=== PATIENT | female | born 1975 | race Caucasian/White ===

== ENCOUNTER 2021-08-25 10:10 | Emergency (ER) | payer MEDICAID ==
[~2021-08-25] VITALS: Ht 165.1 cm; Wt 59.0 kg
[2021-08-25 10:10] VITALS: BP_SYST 161
[~2021-08-25 10:10] MED LIST: CLAR250T3 PO; ENAL10TA19 PO
[2021-08-25] MEDS ORDERED: NACL 0.9% 1,000 ML IV ONE (10:45)
[2021-08-25] MEDS ORDERED: ONDANSETRON HCL 4 MG/2 ML VIAL IVP ONE (10:45)
[2021-08-25 11:23] LABS: HEMATOCRIT 41.2 % (36-48); MEAN CORPUSCULAR HEMOGLOBIN 31 pg (27-31); MEAN CORPUSCULAR HGB CONC 34 % (32-36); MEAN CORPUSCULAR VOLUME 90 fL (79.0-98.0); PLATELET COUNT (AUTO) 182 K/uL (130-430); RED BLOOD CELL COUNT(AUTO) 4.56 MIL/uL (4.2-6.2); RED CELL DISTRIBUTION WIDTH 13.2 % (9.0-15.0)
[2021-08-25 12:38] LABS: ATYPICAL LYMPHOCYTES % 3 % (0-0); BASOPHILS % (MANUAL) 0 % (0-2); EOSINOPHILS % (MANUAL) 0 % (0-7); LYMPHOCYTES % (MANUAL) 32 % (20-46); MONOCYTES % (MANUAL) 4 % (0-11)
[2021-08-25 13:11] LABS: CALCIUM 8.9 mg/dL (8.4-11.0); CREATININE 0.86 mg/dL (0.55-1.30)
[2021-08-25 13:17] LABS: ALBUMIN 4.4 g/dL (3.4-4.8); TOTAL BILIRUBIN 0.3 mg/dL (0.0-1.0)
[2021-08-25 13:28] LABS: POTASSIUM 3.5 mmol/L (3.5-5.1)
[2021-08-25] MEDS ORDERED: LOM2.5 PO (13:31)
[2021-08-25] MEDS ORDERED: ONDA-8 TL (13:31)
[2021-08-25 13:45] VITALS: BP_SYST 161
== END 2021-08-25 13:45 | disposition home or self-care (01) ==
LOC: SED 10:10
DX: K52.9 Noninfective gastroenteritis and colitis, unspecified (principal); Z79.899 Other long term (current) drug therapy
CPT/HCPCS: 36415; 74176; 76376; 80053; 83690; 85007; 85027; 96361; 96374; 99284; J2405; J7030

== ENCOUNTER 2022-02-02 16:39 | Emergency (ER) | payer BC, MEDICAID ==
[~2022-02-02] VITALS: Ht 165.1 cm; Wt 59.0 kg
[~2022-02-02 16:39] MED LIST changes: +LOM2.5 PO; +ONDA-8 TL
[2022-02-02 16:56] VITALS: BP_SYST 144
--- NOTE | 2022-02-02 17:10 | NUR ---
Pt brought by self, A&Ox4, pt presents to ER with lower abd pain ,burning with urination, pt afebrile, skin pink and warm, cap refill <3, VSS.
--- NOTE | 2022-02-02 17:15 | NUR ---
Dr Fernández evaluating patient in the triage room
[2022-02-02 17:31] LABS: BILIRUBIN,URINE NEGATIVE (NEGATIVE); BLOOD, URINE 1+ (NEGATIVE); CLARITY/URINE CLEAR (CLEAR); COLOR,URINE YELLOW (YELLOW); GLUCOSE,URINE NEGATIVE (NEGATIVE); KETONES,URINE NEGATIVE (NEGATIVE); LEUKOCYTE ESTERASE ,URINE NEGATIVE (NEGATIVE); NITRITE, URINE NEGATIVE (NEGATIVE); PH,URINE 7.5 (5.0-8.0); PROTEIN URINE NEGATIVE (NEGATIVE); UROBILINOGEN,URINE 0.2 (0.2-1.0)
[2022-02-02 17:47] LABS: BACTERIA,URINE FEW /HPF (None Seen); MUCUS,URINE None Seen /LPF (None Seen); RBC,URINE 0-3 /HPF (0-3); WBC,URINE NONE SEEN /HPF (0-3)
[2022-02-02 17:53] LABS: BASOPHILS % (AUTO) 0.4 % (0.0-2.0); EOSINOPHILS # (AUTO) 0.1 K/uL (0.0-0.4); HEMATOCRIT 40.3 % (36-48); HEMOGLOBIN 13.3 g/dL (12.0-16.0); LYMPHOCYTES # (AUTO) 1.6 K/uL (1.0-5.5); MEAN CORPUSCULAR HEMOGLOBIN 30 pg (27-31); MEAN CORPUSCULAR HGB CONC 33 % (32-36); MEAN CORPUSCULAR VOLUME 91 fL (79.0-98.0); MONOCYTES # (AUTO) 0.4 K/uL (0.0-1.0); MONOCYTES % (AUTO) 6.6 % (1.7-9.3); NEUTROPHILS # (AUTO) 4.5 K/uL (1.8-7.7); PLATELET COUNT (AUTO) 190 K/uL (130-430); RED BLOOD CELL COUNT(AUTO) 4.42 MIL/uL (4.2-6.2); RED CELL DISTRIBUTION WIDTH 13.6 % (9.0-15.0); WHITE BLOOD COUNT (AUTO) 6.7 K/uL (4.8-10.8)
[2022-02-02 17:55] LABS: ANION GAP 7 (5-15); CALCIUM 8.5 mg/dL (8.4-11.0); CHLORIDE 104 mmol/L (98-107); CREATININE 0.75 mg/dL (0.55-1.30); GLUCOSE 79 mg/dL (70-99); POTASSIUM 3.5 mmol/L (3.5-5.1); SODIUM SERUM 138 mmol/L (136-145); UREA NITROGEN, BLOOD 13 mg/dL (8-21)
--- NOTE | 2022-02-02 17:58 | NUR ---
Patient to ER bed 04 to gown for evaluation. Side rails up.
--- NOTE | 2022-02-02 18:00 | NUR ---
Pt has cc of lower abdominal pain and burning with urination for the past 24 hours. Pt currently sitting on gurney and is calm and cooperative. AxO x4, gcs 15. resp e/u, s1s2 normal. Will continue to monitor.
[2022-02-02 18:01] LABS: ALANINE AMINOTRANSFERASE 19 U/L (12-78); ALBUMIN 4.1 g/dL (3.4-4.8); ASPARTATE AMINOTRANSFERASE 15 U/L (10-37)
[2022-02-02 18:04] LABS: GFR AFRICAN AMERICAN 107 mL/min (>90); TOTAL BILIRUBIN < 0.1 mg/dL (0.0-1.0)
[2022-02-02 18:05] LABS: C-REACTIVE PROTEIN QUANT < 0.2 mg/dL (0-0.5)
[2022-02-02] MEDS ORDERED: IBUP-1969 PO (18:25)
[2022-02-02] MEDS ORDERED: NITR-85 PO (18:25)
--- NOTE | 2022-02-02 19:02 | NUR ---
Pt laying quietly in [facility]. VSS.
[2022-02-02] MEDS ORDERED: CEPH250C PO (19:28)
[2022-02-02 19:37] VITALS: BP_SYST 146
--- NOTE | 2022-02-02 19:38 | NUR ---
Patient given written and verbal discharge instructions and verbalizes understanding. ER MD Fernández discussed with patient the results and treatment provided. Patient in stable condition. ID arm band removed. Rx of Keflex sent to pharmacy of choice. Patient educated on pain management and to follow up with PMD. Pain Scale 0/10. Opportunity for questions provided and answered. Medication side effect fact sheet provided.
== END 2022-02-02 19:38 | disposition home or self-care (01) ==
LOC: SED 16:39
DX: R10.30 Lower abdominal pain, unspecified (principal); Z79.899 Other long term (current) drug therapy
CPT/HCPCS: 36415; 76376; 80053; 81000; 85025; 86140; 99284

== ENCOUNTER 2022-07-03 09:21 | Emergency (ER) | payer MEDICAID ==
[~2022-07-03] VITALS: Ht 165.1 cm; Wt 58.5 kg
[~2022-07-03 09:21] MED LIST changes: +CEPH250C PO; +IBUP-1969 PO
[2022-07-03 09:25] VITALS: BP_SYST 155
--- NOTE | 2022-07-03 09:25 | NUR ---
Patient to ER bed H1 to gown for evaluation. Side rails up.
--- NOTE | 2022-07-03 09:27 | NUR ---
PT WALKED INTO ER STATES BILATERAL FEET PAIN RADIATING TOWARDS KNEES X 1 MONTH WORSE WITH WALKING AND CLIMING STAIRS. DENIES TRAUMA AND INJURY. PT IS AOX4, VSS
--- NOTE | 2022-07-03 09:30 | NUR ---
ER DR. ROBLES EXAMINING PT
--- NOTE | 2022-07-03 09:41 | NUR ---
Lucio bell in [facility] - 07/03/22 at 0944 by [email or web address] Patient transported to radiology via AMBULATION, accompanied by STAFF.
--- NOTE | 2022-07-03 09:44 | NUR ---
PORTABLE XRAY AT THE BEDSIDE
[2022-07-03] MEDS ORDERED: NAPR-688 PO (09:56)
[2022-07-03] MEDS ORDERED: TRAM50TA PO (09:56)
[2022-07-03 10:19] VITALS: BP_SYST 142
--- NOTE | 2022-07-03 10:20 | NUR ---
Patient given written and verbal discharge instructions and verbalizes understanding. ER MD discussed with patient the results and treatment provided. Patient in stable condition. ID arm band removed. Rx of NAPROXEN AND TRAMADOL given. Patient educated on pain management and to follow up with PMD. Pain Scale 0/10. Opportunity for questions provided and answered. Medication side effect fact sheet provided.
== END 2022-07-03 10:19 | disposition home or self-care (01) ==
LOC: SED 09:21
DX: M70.52 Other bursitis of knee, left knee (principal); M70.51 Other bursitis of knee, right knee; M79.661 Pain in right lower leg; M79.662 Pain in left lower leg; Z79.899 Other long term (current) drug therapy; Y93.89 Activity, other specified
CPT/HCPCS: 73590-TC; 99283

== ENCOUNTER 2023-02-20 19:27 | Emergency (ER) | payer MEDICAID, OTHER ==
[~2023-02-20] VITALS: Ht 165.1 cm; Wt 61.2 kg
[~2023-02-20 19:27] MED LIST changes: +ENAL-77 PO; -ENAL10TA19 PO; +NAPR-688 PO; +TRAM50TA PO
[2023-02-20 19:31] VITALS: BP_SYST 167
--- NOTE | 2023-02-20 19:35 | NUR ---
Patient triaged and placed in waiting room. VSS and patient appears in no acute distress at this time. Accompanied by SELF, awaiting available bed, and MD notified of need for MSE.
[2023-02-20] MEDS ORDERED: predniSONE 20 MG TABLET PO ONE (20:15)
[2023-02-20] MEDS ORDERED: DIPHENHYDRAMINE HCL 25 MG CAPSULE PO ONE (20:15)
[2023-02-20] MEDS ORDERED: FAMOTIDINE 20 MG TABLET PO ONE (20:15)
[2023-02-20] MEDS ORDERED: PRED20TA PO (20:16)
[2023-02-20] MEDS ORDERED: DIPH25CA83 PO (20:16)
[2023-02-20] MEDS ORDERED: FAMO-132 PO (20:16)
--- NOTE | 2023-02-20 20:18 | NUR ---
Patient to [facility] for evaluation. Side rails up. Report given to Arabella JENSEN.
--- NOTE | 2023-02-20 20:30 | NUR ---
Dr Joshua evaluating patient in the triage room
[2023-02-20 20:58] VITALS: BP_SYST 167
--- NOTE | 2023-02-20 21:00 | NUR ---
Patient given written and verbal discharge instructions and verbalizes understanding. ER MD discussed with patient the results and treatment provided. Patient in stable condition. ID arm band removed. No Rx given. Patient educated on pain management and to follow up with PMD. Pain Scale 0/10 . Opportunity for questions provided and answered. Medication side effect fact sheet provided.
== END 2023-02-20 20:58 | disposition home or self-care (01) ==
LOC: SED 19:27
DX: T78.40XA Allergy, unspecified, initial encounter (principal); R21 Rash and other nonspecific skin eruption; Z79.899 Other long term (current) drug therapy; X58.XXXA Exposure to other specified factors, initial encounter
CPT/HCPCS: 99284; Q0163; J7512